=== PATIENT | female | born 1975 | race American Indian/Alaskan Native ===

== ENCOUNTER 2016-07-25 17:33 | Emergency (ER) | payer OTHER ==
[2016-07-25 17:43] VITALS: BP 149/97
[2016-07-25] MEDS ORDERED: ULTRAM PO ONE (19:32)
--- NOTE | 2016-07-25 19:38 | Emergency Department Report ---
Upper Extremity - HPI Chief Complaint: Extremity Injury, Upper Stated Complaint: RT HAND FINGER INJURY Time Seen by Provider: 07/25/16 19:17 Upper Extremity: Right Index Finger Occurred When: Today Mechanism: Crush Severity: severe Symptoms: Yes Pain with Movement, Yes Limited Range of Movement, Yes Swelling, Yes Bruising/Ecchymosis, No Deformity, No Numbness, No Laceration or Abrasion Other History: Patient comes into the ER today with complaints of right hand pain with right second finger specifically. She states that she was at work today and a door shut on her right hand. ED Review of Systems ROS: Stated complaint: RT HAND FINGER INJURY Other details as noted in HPI Constitutional: denies: chills, fever Eyes: denies: eye pain, eye discharge, vision change ENT: denies: ear pain, throat pain Respiratory: denies: cough, shortness of breath, wheezing Cardiovascular: denies: chest pain, palpitations Endocrine: no symptoms reported Gastrointestinal: denies: abdominal pain, nausea, diarrhea Genitourinary: denies: urgency, dysuria, discharge Musculoskeletal: joint swelling, arthralgia. denies: back pain Skin: denies: rash, lesions Neurological: denies: headache, weakness, paresthesias Psychiatric: denies: anxiety, depression Hematological/Lymphatic: denies: easy bleeding, easy bruising ED Past Medical Hx - Past Medical History Previous Medical History?: No - Surgical History Additional Surgical History: . TUBAL LIGATION. HYSTERECTOMY - Social History Smoking Status: Current Every Day Smoker Substance Use Type: Alcohol - Medications Home Medications: Home Medications Medication Instructions Recorded Confirmed Last Taken Type HYDROcodone/APAP 5-325 [[place] 1 each PO Q4HR PRN #15 tablet 07/25/16 Unknown Rx 5/325] Naproxen [Naprosyn TAB] 500 mg PO BID #20 tablet 07/25/16 Unknown Rx Upper Extremity Exam - Exam General: Vital signs noted. No distress. Alert and acting appropriately. Head and Torso: No HEENT Abnormality, No Neck Tenderness, No Chest/Lungs Abnormality, No Abdominal Tenderness, No Back Tenderness Shoulder Exam: Yes Normal Range of Motion in Shoulder, No Shoulder Tenderness, No Clavicle Tenderness, No Shoulder Deformity, No AC Joint Tenderness Arm Exam: No Arm/Humerus Tenderness, No Arm Deformity Elbow: No Elbow Tenderness, No Normal Range of Motion in Elbow, No Elbow Deformity Forearm: No Forearm Tenderness, No Forearm Deformity, No Pain with Pronation, No Pain with Supination Wrist: Yes Normal ROM in Wrist, No Wrist Tenderness, No Wrist Deformity, No Snuffbox Tenderness, No Pain with Axial Thumb Compression Hand: Yes Hand Tenderness, Yes Digit Tenderness (greatest amount of tenderness noted to right second finger middle phalanx. Subungual hematoma noted to right second finger.), No Hand Deformity, No Normal ROM in Digit(s) (Limited range of motion secondary to pain.), No Digit(s) Deformity, No Tendon Dysfunction CMS Exam: Yes Normal Distal Pulses, Yes Normal Capillary Refill, Yes Normal Distal Sensation, No Broken Skin ED Course Vital Signs 07/25/16 17:41 Temperature 98.5 F Pulse Rate 91 H Respiratory 17 Rate Blood Pressure 149/97 O2 Sat by Pulse 100 Oximetry ED Medical Decision Making - Radiology Data Radiology results: image reviewed interpreted by me: X-ray images reviewed and discussed with the patient in room. Personal interpretation of imaging reveals a nondisplaced fracture on the posterior side of right second finger of the proximal middle phalanx. - Medical Decision Making Patient is nontoxic and hemodynamically stable. Patient placed in aluminum foam finger splint here in the ER. However patient referral to orthopedics for further evaluation and follow-up to ensure complete resolution of injury. I will limits patient's work duties over the next month or until orthopedics clearance. Patient is stable for discharge and is agreement with treatment plan. Critical care attestation.: If time is entered above; I have spent that time in minutes in the direct care of this critically ill patient, excluding procedure time. ED Disposition Clinical Impression: Finger fracture, right, Crush injury to finger Disposition: DISCHARGED TO HOME OR SELFCARE Is pt being admited?: No Does the pt Need Aspirin: No Condition: Good Instructions: Finger Fracture (ED) Prescriptions: HYDROcodone/APAP 5-325 [[place] 5/325] 1 each PO Q4HR PRN #15 tablet PRN Reason: Pain Naproxen [Naprosyn TAB] 500 mg PO BID #20 tablet Referrals: PRIMARY CARE, [Primary Care Provider] - 3-5 Days Forms: Work/School Release Form(ED) Time of Disposition: 19:44
--- NOTE | 2016-07-26 07:41 | XRay Report ---
Right index finger 3 views: History: Injury swelling and pain. Findings: There is periosteal/cortical avulsion noted at the dorsal aspect of the base of the middle phalanx right index finger. No dislocation. Impression: Findings as described.
== END 2016-07-25 19:45 | disposition home or self-care (01) ==
LOC: ED 17:33
DX: S62.640A Nondisplaced fracture of proximal phalanx of right index finger, initial encounter for closed fracture (principal); F17.200 Nicotine dependence, unspecified, uncomplicated; Z98.51 Tubal ligation status; Z90.710 Acquired absence of both cervix and uterus; W23.0XXA Caught, crushed, jammed, or pinched between moving objects, initial encounter; Y93.89 Activity, other specified; Y99.8 Other external cause status; Y92.89 Other specified places as the place of occurrence of the external cause